=== PATIENT | male | born 1990 | race Two or more races ===

== ENCOUNTER 2020-12-09 11:48 | Outpatient (REF) | payer OTHER, SELFPAY | END 2020-12-09 11:49 | disposition home or self-care (01) | LOC: HO.LAB 11:48 | PROVIDERS: Visit Provider Internal Medicine | DX: Z20.822 Contact with and (suspected) exposure to COVID-19 (principal) | CPT/HCPCS: C9803; U0003; U0005 ==

== ENCOUNTER 2020-12-10 09:40 | Emergency (ER) | payer SELFPAY ==
[2020-12-10 10:31] VITALS: BP 135/95; PULSE 86; RESP 18; TEMP 36.7; O2SAT 99; BMI 25.3
== END 2020-12-10 11:32 | disposition left against medical advice (07) ==
PROVIDERS: Emergency Provider Emergency Medicine
DX: M25.519 Pain in unspecified shoulder (principal)
CPT/HCPCS: 99281; 99282